=== PATIENT | male | born 1985 | race African-American/Black ===

== ENCOUNTER 2017-10-14 20:53 | Emergency (ER) | payer MEDICAID ==
--- NOTE | 2017-10-14 22:41 | ER Document Report ---
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 Denies shortness of breath, states the area hurts worse to his hips. Denies nausea or vomiting, abdominal pain. Denies recent sick contacts. 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 On oxycodone at home. - Related Data Allergies/Adverse Reactions: No Known Allergies Allergy (Unverified 10/14/17 20:54) Past Medical History - Social History Chew tobacco use (# tins/day): No Frequency of alcohol use: None Drug Abuse: None Renal/ Medical History: Denies: Hx Peritoneal Dialysis Physical Exam - Vital signs Vitals: Temp Pulse Resp BP Pulse Ox 98.9 F 85 16 118/64 100 10/14/17 21:11 10/14/17 21:11 10/14/17 21:11 10/14/17 21:11 10/14/17 21:11 - General General appearance: Appears well In distress: None - Respiratory Respiratory status: No respiratory distress Breath sounds: Normal. No: Decreased air movement, Wheezing - Cardiovascular Rhythm: Regular. No: Tachycardia Heart sounds: Normal auscultation, S1 appreciated, S2 appreciated Course - Vital Signs Vital signs: Temp Pulse Resp BP Pulse Ox 98.9 F 85 16 118/64 100 10/14/17 21:11 10/14/17 21:11 10/14/17 21:11 10/14/17 21:11 10/14/17 21:11
[2017-10-14] MEDS ORDERED: FENTANYL CITRATE INJ/PF 100 MCG/2 ML AMPUL IV ONE (23:18)
--- NOTE | 2017-10-14 23:44 | ER Document Report ---
ED General - General Chief Complaint: Sickle Cell Crisis Stated Complaint: BODY PAIN Time Seen by Provider: 10/14/17 22:39 Information source: Patient, Relative - [facility] Patient complains to provider of: Sickle cell pain Onset: This morning Onset/Duration: Gradual, Constant Quality of pain: Dull Severity: Moderate Context: All over including hips and back. Patient states is like his normal sickle cell pain. Associated symptoms: None Exacerbated by: Denies Relieved by: Denies Similar symptoms previously: Yes Recently seen / treated by doctor: No - Patient missed his appointment a few weeks ago with his primary medical Notes: She states he has been out of his oxycodone for approximately 2 weeks. He states he missed an appointment with his primary and therefore did not get a prescription for pain medication. I did ask the patient if this was a sickle- cell exacerbation or just the fact that he has not had his pain medication in a few weeks. He states "combination of both". - Related Data Allergies/Adverse Reactions: No Known Allergies Allergy (Unverified 10/14/17 20:54) Past Medical History - General Information source: Patient - Social History Smoking Status: Never Smoker Chew tobacco use (# tins/day): No Frequency of alcohol use: None Drug Abuse: None Lives with: Family Family History: Reviewed & Not Pertinent Patient has suicidal ideation: No Patient has homicidal ideation: No - Past Medical History Cardiac Medical History: Reports: None Pulmonary Medical History: Reports: None EENT Medical History: Reports: None Neurological Medical History: Reports: None Endocrine Medical History: Reports: None Renal/ Medical History: Reports: None. Denies: Hx Peritoneal Dialysis Malignancy Medical History: Reports None GI Medical History: Reports: None Musculoskeltal Medical History: Reports None Skin Medical History: Reports None Psychiatric Medical History: Reports: None Past Surgical History: Reports: Other - Left anterior chest wall port Review of Systems - Review of Systems Constitutional: No symptoms reported EENT: No symptoms reported Cardiovascular: No symptoms reported Respiratory: No symptoms reported Gastrointestinal: No symptoms reported Genitourinary: No symptoms reported Male Genitourinary: No symptoms reported Musculoskeletal: Muscle pain Skin: No symptoms reported Hematologic/Lymphatic: No symptoms reported Neurological/Psychological: No symptoms reported Physical Exam - Vital signs Vitals: Temp Pulse Resp BP Pulse Ox 98.9 F 85 16 118/64 100 10/14/17 21:11 10/14/17 21:11 10/14/17 21:11 10/14/17 21:11 10/14/17 21:11 - Notes Notes: PHYSICAL EXAMINATION: GENERAL: Well-appearing, well-nourished and in no acute distress. HEAD: Atraumatic, normocephalic. EYES: Pupils equal round and reactive to light, extraocular movements intact, sclera anicteric, conjunctiva are normal. ENT: Nares patent, oropharynx clear without exudates. Moist mucous membranes. NECK: Normal range of motion, supple without lymphadenopathy LUNGS: Breath sounds clear to auscultation bilaterally and equal. No wheezes rales or rhonchi. HEART: Regular rate and rhythm without murmurs. Port to left anterior chest wall without signs or symptoms of infection. ABDOMEN: Soft, nontender, nondistended abdomen. No guarding, no rebound. No masses appreciated. Musculoskeletal: Normal range of motion, no pitting or edema. No cyanosis. NEUROLOGICAL: Cranial nerves grossly intact. Normal speech, normal gait. Normal sensory, motor exams PSYCH: Normal mood, normal affect. SKIN: Warm, Dry, normal turgor, no rashes or lesions noted. Course - Re-evaluation Re-evalutation: 10/14/17 23:40 The patient up in [place] controlled substance prescription reporting he did receive oxycodone and Ultram throughout the month of September including 4010 mg oxycodone's on September 30, 2017. 10/15/17 00:48 Patient states that they do not transfuse him until his blood level is below 7.9. He wants to go home. He is requesting a to go pack of pain medication. I did tell him I will give him a to go pack but he needs to follow-up this primary medical doctor to get more pain medication. 10/15/17 01:04 Labs- All tests 24 hr 10/14/17 10/14/17 10/14/17 22:50 23:53 23:53 WBC 10.5 RBC 2.69 L Hgb 7.9 L Hct 23.4 L MCV 87 MCH 29.3 MCHC 33.6 RDW 19.5 H Plt Count 441 Total Counted 100 Seg Neutrophils % Not Reportable Seg Neuts % (Manual) 68 Lymphocytes % Not Reportable Lymphocytes % (Manual) 20 Monocytes % Not Reportable Monocytes % (Manual) 12 Eosinophils % Not Reportable Eosinophils % (Manual) 0 Basophils % Not Reportable Basophils % (Manual) 0 Absolute Neutrophils Not Reportable Abs Neuts (Manual) 7.1 Absolute Lymphocytes Not Reportable Abs Lymphs (Manual) 2.1 Absolute Monocytes Not Reportable Abs Monocytes (Manual) 1.3 Absolute Eosinophils Not Reportable Absolute Eos (Manual) 0.0 Absolute Basophils Not Reportable Abs Basophils (Manual) 0.0 Nucleated RBCs 3 Large Platelets PRESENT Platelet Comment ADEQUATE Polychromasia SLIGHT Poikilocytosis 2+ Anisocytosis 2+ Sickle Cells 1+ Target Cells 3+ Tear Drop Cells SLIGHT Ovalocytes SLIGHT Stomatocytes SLIGHT Stahl-Doon Bodies PRESENT Schistocytes SLIGHT Retic Count (auto) 6.07 H Absolute Retic 0.163 H Sodium 138.9 Potassium 4.2 Chloride 100 Carbon Dioxide 26 Anion Gap 13 BUN 9 Creatinine 0.71 Est GFR ( Amer) > 60 Est GFR (Non-Af Amer) > 60 Glucose 109 Calcium 9.9 Total Bilirubin 1.9 H Direct Bilirubin 0.5 H Neonat Total Bilirubin Not Reportable Neonat Direct Bilirubin Not Reportable Neonat Indirect Bili Not Reportable AST 50 ALT 55 Alkaline Phosphatase 214 H Total Protein 8.4 H Albumin 4.9 Urine Color YELLOW Urine Appearance CLEAR Urine pH 7.0 Ur Specific [place] 1.011 Urine Protein 100 H Urine Glucose (UA) NEGATIVE Urine Ketones NEGATIVE Urine Blood NEGATIVE Urine Nitrite NEGATIVE Urine Bilirubin NEGATIVE Urine Urobilinogen 4.0 H Ur Leukocyte Esterase NEGATIVE Urine WBC (Auto) 3 Urine RBC (Auto) 1 Squamous Epi Cells Auto <1 Urine Mucus (Auto) RARE Urine Ascorbic Acid NEGATIVE - Vital Signs Vital signs: Temp Pulse Resp BP Pulse Ox 98.9 F 85 16 118/64 100 10/14/17 21:11 10/14/17 21:11 10/14/17 21:11 10/14/17 21:11 10/14/17 21:11 - Laboratory Result Diagrams: 10/14/17 23:53 10/14/17 23:53 Laboratory results interpreted by me: 10/14/17 10/14/17 10/14/17 22:50 23:53 23:53 RBC 2.69 L Hgb 7.9 L Hct 23.4 L RDW 19.5 H Retic Count (auto) 6.07 H Absolute Retic 0.163 H Total Bilirubin 1.9 H Direct Bilirubin 0.5 H Alkaline Phosphatase 214 H Total Protein 8.4 H Urine Protein 100 H Urine Urobilinogen 4.0 H Discharge - Discharge Clinical Impression: Sickle cell anemia with pain, Has run out of medications Condition: Stable Disposition: HOME, SELF-CARE Instructions: Sickle Cell Crisis ([facility]) Additional Instructions: Follow up with your physician tomorrow for further care or return to the ED IMMEDIATELY if symptoms worsen or new concerns occur. If you cannot afford to follow up with your primary care physician a list of low cost clinics have been provided at the end of your discharge papers as well. Prescriptions: Oxycodone HCl [Oxycodone HCl 10 MG Tablet] 5 - 10 mg PO Q6H PRN #10 tablet PRN Reason: PAIN Oxycodone HCl/Acetaminophen [Percocet 5-325 mg Tablet] 1 - 2 tab PO Q4H PRN 3 Days #10 tablet PRN Reason:
[2017-10-15 00:12] LABS: ALANINE AMINOTRANSFERASE 55 U/L (21-72); ALBUMIN 4.9 g/dL (3.5-5.0); ALKALINE PHOSPHATASE 214 U/L (38-126); ANION GAP 13 (5-19); ASPARTATE AMINO TRANSFERASE 50 U/L (17-59); BILIRUBIN,DIRECT 0.5 mg/dL (0.0-0.4); BILIRUBIN,TOTAL 1.9 mg/dL (0.2-1.3); BLOOD UREA NITROGEN 9 mg/dL (7-20); CALCIUM 9.9 mg/dL (8.4-10.2); CARBON DIOXIDE 26 mmol/L (22-30); CHLORIDE 100 mmol/L (98-107); GLUCOSE 109 mg/dL (75-110); POTASSIUM 4.2 mmol/L (3.6-5.0); SODIUM 138.9 mmol/L (137-145); TOTAL PROTEIN 8.4 g/dL (6.3-8.2)
[2017-10-15 00:21] LABS: ABSOLUTE RETICS # 0.163 10^6/uL (0.028-0.122); HEMATOCRIT 23.4 % (37.9-51.0); MEAN CORPUSCULAR HEMOGLOBIN 29.3 pg (27.0-33.4); MEAN CORPUSCULAR HGB CONC 33.6 g/dL (32.0-36.0); MEAN CORPUSCULAR VOLUME 87 fl (80-97); PLATELET COUNT 441 10^3/uL (150-450); RED BLOOD COUNT 2.69 10^6/uL (4.35-5.55); RED CELL DISTRIBUTION WIDTH 19.5 % (11.5-14.0); RETICULOCYTE COUNT (AUTO) 6.07 % (0.66-2.85); WHITE BLOOD COUNT 10.5 10^3/uL (4.0-10.5)
[2017-10-15 00:27] LABS: APPEARANCE,URINE CLEAR; BILIRUBIN,URINE NEGATIVE (NEGATIVE); COLOR,URINE YELLOW; GLUCOSE, URINE NEGATIVE (NEGATIVE); KETONES,URINE NEGATIVE (NEGATIVE); LEUKOCYTE ESTERASE,URINE NEGATIVE (NEGATIVE); NITRITE,URINE NEGATIVE (NEGATIVE); PROTEIN,URINE 100 mg/dL (NEGATIVE); URINE SPECIFIC GRAVITY 1.011
[2017-10-15 00:44] LABS: HEMOGLOBIN 7.9 g/dL (13.5-17.0)
[2017-10-15] MEDS ORDERED: HYDROCODONE/ACETAMINOPHEN 5-325 MG (6 TAB/ER DISP) PO PRN (00:48)
[2017-10-15 00:50] LABS: ABSOLUTE LYMPHOCYTES# (MANUAL) 2.1 10^3/uL (0.5-4.7); ABSOLUTE MONOCYTES # (MANUAL) 1.3 10^3/uL (0.1-1.4); ABSOLUTE NEUTROPHILS# (MANUAL) 7.1 10^3/uL (1.7-8.2); BASOPHILS % (MANUAL) 0 % (0-2); EOSINOPHILS % (MANUAL) 0 % (0-6); LYMPHOCYTES % (MANUAL) 20 % (13-45); MONOCYTES % (MANUAL) 12 % (3-13); NUCLEATED RED BLOOD CELLS 3 /100 WBC (0); SEGMENTED NEUTROPHILS % (MAN) 68 % (42-78); TOTAL CELLS COUNTED 100
[2017-10-15 00:55] LABS: POLYCHROMASIA SLIGHT
[2017-10-15 00:56] LABS: ANISOCYTOSIS 2+; HOWELL-JOLLY BODIES PRESENT; OVALOCYTES SLIGHT; PLATELET COMMENT ADEQUATE; PLATELET LARGE PRESENT; POIKILOCYTOSIS 2+; SCHISTOCYTES SLIGHT; SICKLE RED CELLS 1+; STOMATOCYTES SLIGHT; TARGET CELLS 3+; TEAR DROP CELLS SLIGHT
[2017-10-15 01:05] VITALS: BP 122/64
== END 2017-10-15 01:12 | disposition home or self-care (01) ==
LOC: ER 20:53
DX: D57.00 Hb-SS disease with crisis, unspecified (principal); M79.1 Myalgia
CPT/HCPCS: 36591; 99284; 96374; 36415; 85025; 85045; 80053; 81001; J3010

== ENCOUNTER 2017-10-18 19:08 | Inpatient (IN) | payer MEDICAID ==
--- NOTE | 2017-10-18 20:21 | ER Document Report ---
ED Medical Screen (RME) - General Chief Complaint: Pain All Over Stated Complaint: PAIN Time Seen by Provider: 10/18/17 20:12 Mode of Arrival: Ambulatory Information source: Patient Notes: 32-year-old male history of sickle cell disease seen here a few days prior presents with complaint of continued pain I have greeted and performed a rapid initial assessment of this patient. A comprehensive ED assessment and evaluation of the patient, analysis of test results and completion of the medical decision making process will be conducted by additional ED providers. PHYSICAL EXAMINATION: GENERAL: Well-appearing, well-nourished and in no acute distress. HEAD: Atraumatic, normocephalic. EYES: Pupils equal round extraocular movements intact, conjunctiva are normal. ENT: Nares patent NECK: Normal range of motion LUNGS: No respiratory distress Musculoskeletal: Normal range of motion NEUROLOGICAL: Normal speech, normal gait. PSYCH: Normal mood, normal affect. SKIN: Warm, Dry, normal turgor, no rashes or lesions noted. - Related Data Allergies/Adverse Reactions: No Known Allergies Allergy (Verified 10/18/17 19:10) Past Medical History - Social History Chew tobacco use (# tins/day): No Frequency of alcohol use: None Drug Abuse: None Renal/ Medical History: Denies: Hx Peritoneal Dialysis Past Surgical History: Reports: Other - Left anterior chest wall port Physical Exam - Vital signs Vitals: Temp Pulse Resp BP Pulse Ox 100.2 F 98 18 106/69 99 10/18/17 19:30 10/18/17 19:30 10/18/17 19:30 10/18/17 19:30 10/18/17 19:30 Course - Vital Signs Vital signs: Temp Pulse Resp BP Pulse Ox 100.2 F 98 18 106/69 99 10/18/17 19:30 10/18/17 19:30 10/18/17 19:30 10/18/17 19:30 10/18/17 19:30
[2017-10-18] MEDS ORDERED: HYDROMORPHONE HCL INJ/PF 2 MG/ML AMPULE IV ONE (20:54)
[2017-10-18] MEDS ORDERED: ONDANSETRON HCL INJ/PF 4 MG/2 ML SDV IV ONE (20:54)
[2017-10-18] MEDS ORDERED: NORMAL SALINE 1000 ML 1,000 ML IV ONE ×2 (20:54)
--- NOTE | 2017-10-18 20:56 | ER Document Report ---
ED General - General Chief Complaint: Pain All Over Stated Complaint: PAIN Time Seen by Provider: 10/18/17 20:12 Mode of Arrival: Ambulatory Notes: Patient is a 32-year-old male that comes emergency department for chief complaint of sickle cell crisis, he states he hurts all over but he also has a nonproductive cough and a sore throat with fevers running since yesterday. He denies congestion, nausea or vomiting, diarrhea, abdominal pain, difficulty breathing. 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 - Related Data Allergies/Adverse Reactions: No Known Allergies Allergy (Verified 10/18/17 19:10) Past Medical History - General Information source: Patient - Social History Smoking Status: Never Smoker Chew tobacco use (# tins/day): No Frequency of alcohol use: None Drug Abuse: None Lives with: Family Family History: Reviewed & Not Pertinent Patient has suicidal ideation: No Patient has homicidal ideation: No Renal/ Medical History: Denies: Hx Peritoneal Dialysis Past Surgical History: Reports: Other - Left anterior chest wall port - Immunizations Immunizations up to date: Yes Hx Diphtheria, Pertussis, Tetanus Vaccination: Yes Review of Systems - Review of Systems Constitutional: See HPI EENT: See HPI Cardiovascular: No symptoms reported Respiratory: See HPI Gastrointestinal: No symptoms reported Genitourinary: No symptoms reported Male Genitourinary: No symptoms reported Musculoskeletal: See HPI Skin: No symptoms reported Hematologic/Lymphatic: See HPI Neurological/Psychological: No symptoms reported Physical Exam - Vital signs Vitals: Temp Pulse Resp BP Pulse Ox 100.2 F 98 18 106/69 99 10/18/17 19:30 10/18/17 19:30 10/18/17 19:30 10/18/17 19:30 10/18/17 19:30 - General General appearance: Alert In distress: None - HEENT Head: Normocephalic, Atraumatic Eyes: Normal Conjunctiva: Normal Extraocular movements intact: Yes Eyelashes: Normal Pupils: PERRL Sinus: Normal Nasal: Normal Mouth/Lips: Normal Mucous membranes: Normal Pharynx: Erythema, Exudate, Tonsillar hypertrophy. No: Peritonsillar abscess, Retropharyngeal abscess, Uvular edema, Potential airway comprom. Neck: No: Meningismus, Neck mass - Respiratory Respiratory status: No respiratory distress Breath sounds: Normal. No: Decreased air movement, Wheezing - Cardiovascular Rhythm: Regular. No: Tachycardia Heart sounds: Normal auscultation, S1 appreciated, S2 appreciated - Abdominal Inspection: Normal Tenderness: Nontender. No: Tender, Guarding - Back Back: Normal, Nontender. No: Tender - Extremities General upper extremity: Normal inspection, Nontender, Normal ROM, Normal strength General lower extremity: Normal inspection, Nontender, Normal ROM, Normal strength. No: Edema - Neurological Neuro grossly intact: Yes Cognition: Normal Orientation: AAOx4 [place] Coma Scale Eye Opening: Spontaneous [place] Coma Scale Verbal: Oriented [place] Coma Scale Motor: Obeys Commands Santiago Coma Scale Total: 15 Speech: Normal Motor strength normal: LUE, RUE, LLE, RLE Sensory: Normal - Skin Skin Temperature: Warm Skin Moisture: Dry Skin Color: Normal Course - Re-evaluation Re-evalutation: Patient reporting is much more comfortable but is still in pain after first round of medications and IV fluids. No fever, temperature 100.2, no tachycardia , no hypotension. Clear lungs, chest x-ray does not show pneumonia, no evidence of acute chest syndrome on exam. Patient does have exudative pharyngitis, strep is negative, however patient has leukocytosis with elevation of neutrophils, culture pending. Given Rocephin for coverage. In addition to leukocytosis patient has elevated reticulocytes, greater compared to prior. Chemistries generally unremarkable. Discussed results with patient, discussed symptoms on reevaluation, after discussion will discuss with hospitalist for admission for sickle cell pain crisis suspected bacterial pharyngitis. Discussed with Dr. Velez, patient will be admitted to the medical floor. - Vital Signs Vital signs: Temp Pulse Resp BP Pulse Ox 99.6 F 74 19 104/60 99 10/18/17 22:43 10/19/17 02:17 10/19/17 02:17 10/19/17 02:02 10/19/17 02:17 - Laboratory Result Diagrams: 10/18/17 23:05 10/18/17 22:05 Laboratory results interpreted by me: 10/18/17 10/18/17 22:05 23:05 WBC 28.9 H RBC 2.86 L Hgb 8.6 L Hct 26.4 L RDW 23.5 H Abs Neuts (Manual) 22.5 H Abs Monocytes (Manual) 2.6 H Retic Count (auto) 10.90 H Absolute Retic 0.311 H Sodium 136.3 L BUN 6 L Glucose 113 H ALT 83 H Alkaline Phosphatase 144 H Discharge - Discharge Clinical Impression: Exudative pharyngitis, Sickle cell anemia with crisis Condition: Stable Disposition: ADMITTED INPATIENT Admitting Provider: Hospitalist Unit Admitted: Medical Floor
--- NOTE | 2017-10-18 21:56 | RADIOLOGY REPORT (SQ) ---
EXAM DESCRIPTION: CHEST PA/LAT COMPLETED DATE/TIME: 10/18/2017 9:16 pm REASON FOR STUDY: sickle cell body aches COMPARISON: None. EXAM PARAMETERS: NUMBER OF VIEWS: two views TECHNIQUE: Digital Frontal and Lateral radiographic views of the chest acquired. RADIATION DOSE: NA LIMITATIONS: none FINDINGS: LUNGS AND PLEURA: There are low lung volumes. No dense focal consolidation worrisome for an yet. No pleural effusion. No pneumothorax. MEDIASTINUM AND HILAR STRUCTURES: No masses or contour abnormalities. HEART AND VASCULAR STRUCTURES: Mild cardiomegaly. BONES: Diffuse bony sclerosis wake characteristic vertebral body biconcave endplate changes from sick le cell. HARDWARE: Faintly radiopaque permanent left subclavian central line with the tip in the superior vena cava. OTHER: No other significant finding. IMPRESSION: No acute infiltrates. Mild cardiomegaly. Characteristic bony findings of sickle cell TECHNICAL DOCUMENTATION: JOB ID: [id number] [employer]- All Rights Reserved Reading location - IP/workstation name: [email or web address]
[2017-10-18 22:42] LABS: ALANINE AMINOTRANSFERASE 83 U/L (21-72); ALBUMIN 4.4 g/dL (3.5-5.0); ALKALINE PHOSPHATASE 144 U/L (38-126); ANION GAP 14 (5-19); ASPARTATE AMINO TRANSFERASE 57 U/L (17-59); BILIRUBIN,DIRECT 0.4 mg/dL (0.0-0.4); BILIRUBIN,TOTAL 0.9 mg/dL (0.2-1.3); BLOOD UREA NITROGEN 6 mg/dL (7-20); CALCIUM 9.6 mg/dL (8.4-10.2); CARBON DIOXIDE 22 mmol/L (22-30); CHLORIDE 100 mmol/L (98-107); GLUCOSE 113 mg/dL (75-110); POTASSIUM 3.7 mmol/L (3.6-5.0); SODIUM 136.3 mmol/L (137-145); TOTAL PROTEIN 7.8 g/dL (6.3-8.2)
[2017-10-18 23:29] LABS: ABSOLUTE RETICS # 0.311 10^6/uL (0.028-0.122); HEMATOCRIT 26.4 % (37.9-51.0); HEMOGLOBIN 8.6 g/dL (13.5-17.0); MEAN CORPUSCULAR HEMOGLOBIN 30.2 pg (27.0-33.4); MEAN CORPUSCULAR HGB CONC 32.7 g/dL (32.0-36.0); PLATELET COUNT 347 10^3/uL (150-450); RED BLOOD COUNT 2.86 10^6/uL (4.35-5.55); RED CELL DISTRIBUTION WIDTH 23.5 % (11.5-14.0); WHITE BLOOD COUNT 28.9 10^3/uL (4.0-10.5)
[2017-10-18 23:32] LABS: MEAN CORPUSCULAR VOLUME 92 fl (80-97)
[2017-10-18 23:46] LABS: ABSOLUTE LYMPHOCYTES# (MANUAL) 3.8 10^3/uL (0.5-4.7); ABSOLUTE MONOCYTES # (MANUAL) 2.6 10^3/uL (0.1-1.4); ABSOLUTE NEUTROPHILS# (MANUAL) 22.5 10^3/uL (1.7-8.2); BASOPHILS % (MANUAL) 0 % (0-2); EOSINOPHILS % (MANUAL) 0 % (0-6); LYMPHOCYTES % (MANUAL) 13 % (13-45); MONOCYTES % (MANUAL) 9 % (3-13); PLATELET COMMENT ADEQUATE; SEGMENTED NEUTROPHILS % (MAN) 78 % (42-78); TOTAL CELLS COUNTED 100
[2017-10-19 00:01] LABS: POIKILOCYTOSIS 2+; POLYCHROMASIA 1+; TARGET CELLS 2+
[2017-10-19 00:02] LABS: ANISOCYTOSIS 2+; HYPOCHROMASIA 2+
[2017-10-19 00:07] LABS: HYPERSEGMENTED NEUTROPHILS PRESENT
[2017-10-19] MEDS ORDERED: HYDROMORPHONE HCL INJ/PF 2 MG/ML AMPULE IV ONE (00:09)
[2017-10-19] MEDS ORDERED: CEFTRIAXONE INJ 1000 MG VIAL IV ONE (00:11)
[2017-10-19] MEDS ORDERED: HYDRALAZINE HCL INJ/PF 20 MG/1 ML SDV IV PRN (00:38)
[2017-10-19] MEDS ORDERED: CHLORPHENIRAMINE MALEATE 4 MG TABLET PO ONE (00:38)
[2017-10-19] MEDS ORDERED: KETOROLAC TROMETHAMINE INJ/PF 30 MG/1 ML SDV IV PRN (00:38)
[2017-10-19] MEDS ORDERED: ACETAMINOPHEN 325 MG TABLET PO PRN (00:38)
[2017-10-19] MEDS ORDERED: IPRATROPIUM/ALBUTEROL 0.5-2.5 MG/3 ML AMPUL NEB PRN (00:41)
[2017-10-19] MEDS: IPRATROPIUM/ALBUTEROL 0.5-2.5 MG/3 ML AMPUL NEB SCH ×4 (02:17→19:39)
[2017-10-19] MEDS: NORMAL SALINE 1000 ML 1,000 ML IV SCH ×2 (03:52→07:12)
[2017-10-19] MEDS ORDERED: CHLORPHENIRAMINE MALEATE 4 MG TABLET ONE (04:14)
[2017-10-19] MEDS: GUAIFENESIN SYRP 200 MG/10 ML UDC PO PRN ×2 (04:24→21:29)
[2017-10-19] MEDS ORDERED: OXYCODONE HCL IR 5 MG TABLET ONE (05:55)
--- NOTE | 2017-10-19 06:18 | PDOC H&P ---
History of Present Illness Admission Date/PCP: 10/19/17 00:43 Patient complains of: Sore throat and diffuse body pain History of Present Illness: MASTER MATOS is a 32 year old male with a past medical history of sickle cell anemia and chronic pain. Patient has had 1 week of pharyngitis, denying rhinorrhea, cough, GERD, nausea vomiting he has had subjective fever prompting evaluation emergency room where he is found to have a severe leukocytosis of 29, 000, hemoglobin of 8.6 and reticulocyte count of 11. He started on empiric antibiotics of Rocephin, IV fluids and referred to the hospitalist for admission. Patient denies recent antibiotic use and is otherwise been feeling well. He denies chest pain shortness of breath nausea vomiting. Past Medical History Cardiac Medical History: Reports: None Pulmonary Medical History: Reports: None EENT Medical History: Reports: None Neurological Medical History: Reports: None Endocrine Medical History: Reports: None Renal/ Medical History: Reports: None Malignancy Medical History: Reports: None GI Medical History: Reports: None Musculoskeltal Medical History: Reports: None Skin Medical History: Reports: None Psychiatric Medical History: Reports: None Traumatic Medical History: Reports: None Hematology: Reports: Anemia, Sickle Cell Disease Infectious Medical History: Reports: None Past Surgical History Past Surgical History: Reports: Other - Left anterior chest wall port Social History Information Source: Patient Lives with: Family Smoking Status: Never Smoker Frequency of Alcohol Use: None Hx Recreational Drug Use: No Drugs: None Hx Prescription Drug Abuse: No - Advance Directive Resuscitation Status: Full Code Family History Family History: Hypertension Parental Family History Reviewed: Yes Children Family History Reviewed: Yes Sibling(s) Family History Reviewed.: Yes Medication/Allergy Home Medications: Oxycodone HCl [Oxycodone HCl 10 MG Tablet] 5 - 10 mg PO Q6H PRN #10 tablet 10/15 Folic Acid 1 mg PO 10/19/17 Oxycodone HCl/Acetaminophen [Percocet 5-325 mg Tablet] 300 mg PO Q4H PRN Allergies/Adverse Reactions: No Known Allergies Allergy (Verified 10/18/17 19:10) Review of Systems Constitutional: ABSENT: chills, fever(s), headache(s), weight gain, weight loss Eyes: ABSENT: visual disturbances Ears: ABSENT: hearing changes Cardiovascular: ABSENT: chest pain, dyspnea on exertion, edema, orthropnea, palpitations Respiratory: ABSENT: cough, hemoptysis Gastrointestinal: ABSENT: abdominal pain, constipation, diarrhea, hematemesis, hematochezia, nausea, vomiting Genitourinary: ABSENT: dysuria, hematuria Musculoskeletal: ABSENT: joint swelling Integumentary: ABSENT: rash, wounds Neurological: ABSENT: abnormal gait, abnormal speech, confusion, dizziness, focal weakness, syncope Psychiatric: ABSENT: anxiety, depression, homidical ideation, suicidal ideation Endocrine: ABSENT: cold intolerance, heat intolerance, polydipsia, polyuria Hematologic/Lymphatic: ABSENT: easy bleeding, easy bruising Physical Exam Vital Signs: Temp Pulse Resp BP Pulse Ox 98.2 F 71 18 116/67 98 10/19/17 03:27 10/19/17 03:27 10/19/17 03:27 10/19/17 03:27 10/19/17 03:27 General appearance: PRESENT: cooperative, mild distress, thin. ABSENT: disheveled, hard of hearing, obese, severe distress Head exam: PRESENT: atraumatic, normocephalic Eye exam: PRESENT: conjunctiva pink, EOMI, PERRLA. ABSENT: scleral icterus Ear exam: PRESENT: normal external ear exam Mouth exam: PRESENT: moist, tongue midline, other - Left-sided erythemic enlarged tonsils with exudate Neck exam: PRESENT: lymphadenopathy - Left-sided 1.5 cm submandibular tender lymphadenopathy Respiratory exam: PRESENT: clear to auscultation helen. ABSENT: rales, rhonchi, wheezes Cardiovascular exam: PRESENT: RRR. ABSENT: diastolic murmur, rubs, systolic murmur Pulses: PRESENT: normal dorsalis pedis pul Vascular exam: PRESENT: normal capillary refill GI/Abdominal exam: PRESENT: normal bowel sounds, soft. ABSENT: distended, guarding, mass, organolmegaly, rebound, tenderness Rectal exam: PRESENT: deferred Extremities exam: PRESENT: full ROM. ABSENT: calf tenderness, clubbing, pedal edema Neurological exam: PRESENT: alert, awake, oriented to person, oriented to place , oriented to time, oriented to situation, CN II-XII grossly intact. ABSENT: motor sensory deficit Psychiatric exam: PRESENT: appropriate affect, normal mood. ABSENT: homicidal ideation, suicidal ideation Skin exam: PRESENT: dry, intact, warm. ABSENT: cyanosis, rash Results Impressions: Chest X-Ray 10/18/17 20:12 IMPRESSION: No acute infiltrates. Mild cardiomegaly. Characteristic bony findings of sickle cell Assessment & Plan - Diagnosis (1) Exudative pharyngitis Is this a current diagnosis for this admission?: Yes Plan: Empiric antibiotics, symptomatic management, IV fluid challenge, reevaluate CBC and blood culture. (2) Sickle cell anemia with pain Is this a current diagnosis for this admission?: Yes Plan: Symptomatic management opiates and NSAIDs as needed, follow-up CBC (3) Has run out of medications Is this a current diagnosis for this admission?: Yes Plan: Concern for narcotic dependence and recent relocation to the area consider database evaluation. - Time Time Spent: 30 to 50 Minutes - Inpatient Certification Medical Necessity: Need Close Monitoring Due to Risk of Patient Decompensation
[2017-10-19 07:00] LABS: HEMATOCRIT 21.2 % (37.9-51.0); MEAN CORPUSCULAR HEMOGLOBIN 30.2 pg (27.0-33.4); MEAN CORPUSCULAR HGB CONC 32.5 g/dL (32.0-36.0); MEAN CORPUSCULAR VOLUME 93 fl (80-97); PLATELET COUNT 307 10^3/uL (150-450); RED BLOOD COUNT 2.28 10^6/uL (4.35-5.55); RED CELL DISTRIBUTION WIDTH 22.8 % (11.5-14.0); WHITE BLOOD COUNT 28.1 10^3/uL (4.0-10.5)
[2017-10-19] MEDS: HEPARIN SOD (PORCINE) 5,000 UNIT/ML 1 ML SYRINGE SUBCUT SCH ×3 (07:18→22:16)
[2017-10-19 07:20] LABS: ANION GAP 10 (5-19); BLOOD UREA NITROGEN 5 mg/dL (7-20); CALCIUM 8.7 mg/dL (8.4-10.2); CARBON DIOXIDE 23 mmol/L (22-30); CHLORIDE 106 mmol/L (98-107); GLUCOSE 96 mg/dL (75-110); POTASSIUM 3.5 mmol/L (3.6-5.0); SODIUM 139.4 mmol/L (137-145)
[2017-10-19 07:33] LABS: HEMOGLOBIN 6.9 g/dL (13.5-17.0)
[2017-10-19 07:35] LABS: ABSOLUTE LYMPHOCYTES# (MANUAL) 4.2 10^3/uL (0.5-4.7); ABSOLUTE MONOCYTES # (MANUAL) 2.2 10^3/uL (0.1-1.4); ABSOLUTE NEUTROPHILS# (MANUAL) 21.6 10^3/uL (1.7-8.2); BASOPHILS % (MANUAL) 0 % (0-2); EOSINOPHILS % (MANUAL) 0 % (0-6); LYMPHOCYTES % (MANUAL) 15 % (13-45); MONOCYTES % (MANUAL) 8 % (3-13); SEGMENTED NEUTROPHILS % (MAN) 77 % (42-78); TOTAL CELLS COUNTED 100
[2017-10-19 07:40] LABS: ANISOCYTOSIS 3+; HOWELL-JOLLY BODIES PRESENT; OVALOCYTES SLIGHT; PLATELET COMMENT ADEQUATE; POIKILOCYTOSIS 2+; POLYCHROMASIA SLIGHT; SCHISTOCYTES SLIGHT; TARGET CELLS 1+
[2017-10-19] MEDS: FLUTICASONE NASAL SPRAY 50 MCG/SPRY 120 SPRAY/16 GM NASL SCH ×2 (10:13→21:32)
[2017-10-19] MEDS: LACTULOSE SYRUP 20 GM/30 ML UDCUP PO SCH (10:13)
[2017-10-19] MEDS ORDERED: FENTANYL CITRATE INJ/PF 100 MCG/2 ML AMPUL IV PRN (10:17)
--- NOTE | 2017-10-19 11:06 | PDOC PROGRESS REPORT ---
Subjective Progress Note for:: 10/19/17 Subjective:: The patient is an unfortunate 32-year-old -Kos[place] male who moved to this area from [facility] 1 week ago. He has a history of sickle cell disease and follows at [facility]. He has known avascular necrosis in both of his hips and is currently awaiting hip replacement. He presented to the emergency room with a one-week history of a severe sore throat. He was found to have markedly leukocytosis and referred for admission.Throat culture is negative to date. He has been started on empiric IV antibiotics. He also has been found to have a sickle cell crisis. He has an elevated reticulocyte count and he states that he is having pain primarily in his back and hips. Unfortunately we do not have access to IV morphine, Dilaudid or Demerol. IV fentanyl is the only narcotic that we have been he states this does not work for him. Reason For Visit: SSC, URI, CHRONIC PAIN Physical Exam Vital Signs: Temp Pulse Resp BP Pulse Ox 97.4 F 64 16 106/63 96 10/19/17 08:03 10/19/17 09:11 10/19/17 09:11 10/19/17 08:03 10/19/17 09:11 Intake & Output 10/18/17 10/19/17 10/20/17 06:59 06:59 06:59 Intake Total 120 Output Total 300 Balance -180 Weight 62 kg General appearance: PRESENT: other Head exam: PRESENT: atraumatic - He looks as if he does not feel well, normocephalic Mouth exam: PRESENT: moist, tongue midline Neck exam: PRESENT: lymphadenopathy Respiratory exam: PRESENT: clear to auscultation helen. ABSENT: rales, rhonchi, wheezes Cardiovascular exam: PRESENT: tachycardia. ABSENT: diastolic murmur, rubs, systolic murmur GI/Abdominal exam: PRESENT: normal bowel sounds, soft. ABSENT: distended, guarding, mass, organolmegaly, rebound, tenderness Rectal exam: PRESENT: deferred Extremities exam: PRESENT: full ROM. ABSENT: calf tenderness, clubbing, pedal edema Musculoskeletal exam: PRESENT: tenderness - Over both hips and lumbar spine Neurological exam: PRESENT: alert, awake, oriented to person, oriented to place , oriented to time, oriented to situation, CN II-XII grossly intact. ABSENT: motor sensory deficit Psychiatric exam: PRESENT: appropriate affect, depressed, normal mood. ABSENT: homicidal ideation, suicidal ideation Skin exam: PRESENT: dry, intact, warm. ABSENT: cyanosis, rash Results Laboratory Results: 10/19/17 06:15 10/19/17 06:15 10/19/17 10/19/17 06:15 06:15 WBC 28.1 H RBC 2.28 L Hgb 6.9 L Hct 21.2 L MCV 93 MCH 30.2 MCHC 32.5 RDW 22.8 H Plt Count 307 Seg Neutrophils % Not Reportable Lymphocytes % Not Reportable Monocytes % Not Reportable Eosinophils % Not Reportable Basophils % Not Reportable Absolute Neutrophils Not Reportable Absolute Lymphocytes Not Reportable Absolute Monocytes Not Reportable Absolute Eosinophils Not Reportable Absolute Basophils Not Reportable Sodium 139.4 Potassium 3.5 L Chloride 106 Carbon Dioxide 23 Anion Gap 10 BUN 5 L Creatinine 0.54 Est GFR ( Amer) > 60 Est GFR (Non-Af Amer) > 60 Glucose 96 Calcium 8.7 Impressions: Chest X-Ray 10/18/17 20:12 IMPRESSION: No acute infiltrates. Mild cardiomegaly. Characteristic bony findings of sickle cell Assessment & Plan - Diagnosis (1) Exudative pharyngitis Is this a current diagnosis for this admission?: Yes Plan: His throat culture is negative to date. Continue IV Rocephin. This is the first full day of treatment. (2) Acute sickle cell crisis Is this a current diagnosis for this admission?: Yes Plan: I am going to start the patient on maintenance IV fluids at 150 cc an hour. He will have 4 mg of p.o. Dilaudid every 4 hours for pain. He will have IV fentanyl for breakthrough pain. We will make adjustments as we go along. (3) Sickle cell anemia Is this a current diagnosis for this admission?: Yes Plan: The patient has had a precipitous drop in his hemoglobin likely due to hemodilution. At this point I will hold off on transfusion. He also has known avascular necrosis and significant pain in both of his hips and lower back at this time. Supportive care for now as outlined above. He does follow at [facility] and states that he is going to move back home to [place] as his is having a hard time managing all of this being away from family. (4) Hyponatremia Is this a current diagnosis for this admission?: Yes Plan: He will have a chemistry panel drawn in the morning (5) Elevated liver function tests Is this a current diagnosis for this admission?: Yes Plan: Secondary to iron overload and sickle cell crisis. (6) Full code status Is this a current diagnosis for this admission?: Yes
[2017-10-19] MEDS: HYDROMORPHONE HCL 2 MG TABLET PO PRN ×4 (11:14→23:42)
[2017-10-19] MEDS ORDERED: OXYCODONE HCL IR 5 MG TABLET PO SCH (18:00)
[2017-10-19] MEDS: CEFTRIAXONE SODIUM 1,000 MG in NORMAL SALINE 100 ML IV SCH (21:30)
[2017-10-19] MEDS ORDERED: CEFTRIAXONE 1 GM/D5W RTU 1 GM/50 ML RTUPB IV SCH (22:00)
[2017-10-19] MEDS: NORMAL SALINE 1000 ML 1,000 ML IV PRN (23:43)
[2017-10-20] MEDS: IPRATROPIUM/ALBUTEROL 0.5-2.5 MG/3 ML AMPUL NEB SCH ×4 (01:41→19:26)
[2017-10-20] MEDS: HYDROMORPHONE HCL 2 MG TABLET PO PRN ×4 (05:20→20:48)
[2017-10-20 06:20] LABS: ABSOLUTE BASOPHILS # (AUTO) 0.1 10^3/uL (0.0-0.2); ABSOLUTE EOSINOPHILS # (AUTO) 0.2 10^3/uL (0.0-0.6); ABSOLUTE MONOCYTES (AUTO) 1.6 10^3/uL (0.1-1.4); ABSOLUTE NEUT (AUTO) 8.8 10^3/uL (1.7-8.2); ABSOLUTE RETICS # 0.117 10^6/uL (0.028-0.122); BASOPHILS % (AUTO) 0.6 % (0-2); EOSINOPHILS % (AUTO) 1.2 % (0-6); HEMATOCRIT 20.6 % (37.9-51.0); MEAN CORPUSCULAR HEMOGLOBIN 29.9 pg (27.0-33.4); MEAN CORPUSCULAR HGB CONC 32.6 g/dL (32.0-36.0); MEAN CORPUSCULAR VOLUME 92 fl (80-97); MONOCYTES % (AUTO) 11.5 % (3-13); PLATELET COUNT 322 10^3/uL (150-450); RED BLOOD COUNT 2.24 10^6/uL (4.35-5.55); RED CELL DISTRIBUTION WIDTH 21.8 % (11.5-14.0); RETICULOCYTE COUNT (AUTO) 5.24 % (0.66-2.85); SEGMENTED NEUTROPHILS % (AUTO) 64.7 % (42-78); TOTAL CELLS COUNTED % (AUTO) 100 %; WHITE BLOOD COUNT 13.5 10^3/uL (4.0-10.5)
[2017-10-20 06:24] LABS: HEMOGLOBIN 6.7 g/dL (13.5-17.0)
[2017-10-20 06:26] LABS: ANION GAP 9 (5-19); BLOOD UREA NITROGEN 3 mg/dL (7-20); CARBON DIOXIDE 17 mmol/L (22-30); CHLORIDE 118 mmol/L (98-107); GLUCOSE 70 mg/dL (75-110); POTASSIUM 3.1 mmol/L (3.6-5.0); SODIUM 144.3 mmol/L (137-145)
[2017-10-20 06:49] LABS: CALCIUM 6.6 mg/dL (8.4-10.2)
[2017-10-20] MEDS ORDERED: POTASSIUM CHLORIDE 10 MEQ TABLET.SA PO ONE (06:51)
[2017-10-20] MEDS: NORMAL SALINE 1000 ML 1,000 ML IV PRN (07:04)
[2017-10-20] MEDS: HEPARIN SOD (PORCINE) 5,000 UNIT/ML 1 ML SYRINGE SUBCUT SCH ×3 (07:12→21:24)
[2017-10-20] MEDS ORDERED: NORMAL SALINE 250 ML IV PRN ×2 (10:38)
--- NOTE | 2017-10-20 10:43 | PDOC PROGRESS REPORT ---
Subjective Progress Note for:: 10/20/17 Subjective:: The patient is an unfortunate 32-year-old -Cypriot male who moved to this area from [place], [place] 1 week ago. He has a history of sickle cell disease and follows at [facility]. He has known avascular necrosis in both of his hips and is currently awaiting hip replacement. He presented to the emergency room with a one-week history of a severe sore throat. He was found to have markedly leukocytosis and referred for admission.Throat culture is positive for Group C strep. He has been started on IV Rocephin and his throat pain is slowly improving. He also has been found to have a sickle cell crisis. He had an elevated reticulocyte count at the time of admission and he states that he is having pain primarily in his back and hips. Unfortunately we do not have access to IV morphine, Dilaudid or Demerol. IV fentanyl is the only narcotic that we have been he states this does not work for him. Yesterday this patient was started on p.o. Dilaudid with IV fentanyl for breakthrough pain. He has not tried the IV fentanyl as he is adamant that it does not work. His pain is still uncontrolled. Discussions have been had with the nursing staff in the emergency department and we are trying to get him a one-time dose of Dilaudid as there is a very small amount here in the hospital. At this point we have agreed to start him back on his home regimen of OxyContin 10 mg every 8 hours and after he receives the IV Dilaudid he will continue p.o. Dilaudid for breakthrough pain. I also have encouraged him to try the IV fentanyl. Overall he states his pain is somewhat better than when he came into the hospital but he is still nowhere close to baseline. He denies fever chills. No chest pain or evidence of acute chest syndrome. He feels like his heart is racing at times. He has had no nausea, vomiting or diarrhea. No dysuria, frequency or hematuria. He states his throat pain is improving. Reason For Visit: SSC, URI, CHRONIC PAIN Physical Exam Vital Signs: Temp Pulse Resp BP Pulse Ox 98.2 F 86 16 121/76 98 10/20/17 07:39 10/20/17 09:25 10/20/17 09:25 10/20/17 07:39 10/20/17 09:25 Intake & Output 10/19/17 10/20/17 10/21/17 06:59 06:59 06:59 Intake Total 120 3610 Output Total 300 3750 Balance -180 -140 Weight 62 kg 63.4 kg General appearance: PRESENT: well-developed, well-nourished, other - He appears to be uncomfortable but is not in acute distress Mouth exam: PRESENT: moist, tongue midline Respiratory exam: PRESENT: clear to auscultation helen. ABSENT: rales, rhonchi, wheezes Cardiovascular exam: PRESENT: +S1, +S2, tachycardia - Quite tachycardic this morning with a regular rhythm. ABSENT: diastolic murmur, rubs, systolic murmur GI/Abdominal exam: PRESENT: normal bowel sounds, soft. ABSENT: distended, guarding, mass, organolmegaly, rebound, tenderness Rectal exam: PRESENT: deferred Extremities exam: PRESENT: other - Tender to palpation over both hips and along femurs of both legs as well as tibias of both legs. Neurological exam: PRESENT: alert, awake, oriented to person, oriented to place , oriented to time, oriented to situation, CN II-XII grossly intact. ABSENT: motor sensory deficit Psychiatric exam: PRESENT: appropriate affect, normal mood. ABSENT: homicidal ideation, suicidal ideation Skin exam: PRESENT: dry, intact, warm. ABSENT: cyanosis, rash Results Laboratory Results: 10/20/17 06:00 10/20/17 06:00 10/20/17 10/20/17 06:00 06:00 WBC 13.5 H RBC 2.24 L Hgb 6.7 L Hct 20.6 L MCV 92 MCH 29.9 MCHC 32.6 RDW 21.8 H Plt Count 322 Seg Neutrophils % 64.7 Lymphocytes % 22.0 Monocytes % 11.5 Eosinophils % 1.2 Basophils % 0.6 Absolute Neutrophils 8.8 H Absolute Lymphocytes 3.0 Absolute Monocytes 1.6 H Absolute Eosinophils 0.2 Absolute Basophils 0.1 Retic Count (auto) 5.24 H Absolute Retic 0.117 Sodium 144.3 Potassium 3.1 L Chloride 118 H Carbon Dioxide 17 L Anion Gap 9 BUN 3 L Creatinine 0.46 L Est GFR ( Amer) > 60 Est GFR (Non-Af Amer) > 60 Glucose 70 L Calcium 6.6 L* Magnesium 1.5 L Impressions: Chest X-Ray 10/18/17 20:12 IMPRESSION: No acute infiltrates. Mild cardiomegaly. Characteristic bony findings of sickle cell Assessment & Plan - Diagnosis (1) Exudative pharyngitis Is this a current diagnosis for this admission?: Yes Plan: His throat culture is positive for group C strep. Continue IV Rocephin. This is the second full day of treatment. (2) Acute sickle cell crisis Is this a current diagnosis for this admission?: Yes Plan: Today I am going to cut his IV fluids bed 100 cc an hour. We are going to try to get him a one-time dose of IV Dilaudid. After this he will continue to have 4 mg of p.o. Dilaudid every 3 hours for pain. I am going to start him back on his home regimen of OxyContin 10 mg every 8 hours. He will continue to have IV fentanyl and he has been encouraged to try it. (3) Sickle cell anemia Is this a current diagnosis for this admission?: Yes Plan: Yesterday the patient has had a precipitous drop in his hemoglobin likely due to hemodilution as well as his sickle cell crisis. I am going to transfuse him 1 unit of packed red blood cells today as it has continued to drop down. He also has known avascular necrosis and significant pain in both of his hips and lower back at this time. Supportive care for now as outlined above. He does follow at [facility] and states that he is going to move back home to [place] as his is having a hard time managing all of this being away from family. (4) Hyponatremia Is this a current diagnosis for this admission?: Yes Plan: Resolved with IV fluid hydration. He will have a chemistry panel drawn in the morning (5) Elevated liver function tests Is this a current diagnosis for this admission?: Yes Plan: Secondary to iron overload and sickle cell crisis. (6) Full code status Is this a current diagnosis for this admission?: Yes - Time Time Spent with patient: 25-34 minutes - Inpatient Certification Medical Necessity: Need For IV Fluids, Need for IV Antibiotics, Other - Inpatient hospitalization remains necessary. The patient is having an active sickle cell crisis with poorly controlled pain. He needs further parenteral antibiotics. He needs blood today. I am going to continue IV fluid hydration. Hopefully if we can turn this around he can be discharged home in the next few days.
[2017-10-20] MEDS: LACTULOSE SYRUP 20 GM/30 ML UDCUP PO SCH (11:03)
[2017-10-20] MEDS: FLUTICASONE NASAL SPRAY 50 MCG/SPRY 120 SPRAY/16 GM NASL SCH ×2 (11:03→21:27)
[2017-10-20] MEDS ORDERED: OXYCODONE HCL SR 10 MG TABLET PO ONE (11:30)
[2017-10-20 11:56] LABS: HEMATOCRIT 22.4 % (37.9-51.0); MEAN CORPUSCULAR HEMOGLOBIN 29.8 pg (27.0-33.4); MEAN CORPUSCULAR HGB CONC 32.9 g/dL (32.0-36.0); MEAN CORPUSCULAR VOLUME 91 fl (80-97); PLATELET COUNT 338 10^3/uL (150-450); RED BLOOD COUNT 2.47 10^6/uL (4.35-5.55); RED CELL DISTRIBUTION WIDTH 22.1 % (11.5-14.0); WHITE BLOOD COUNT 13.6 10^3/uL (4.0-10.5)
[2017-10-20 11:58] LABS: HEMOGLOBIN 7.4 g/dL (13.5-17.0)
[2017-10-20] MEDS ORDERED: OXYCODONE HCL IR 5 MG TABLET PO SCH (14:00)
[2017-10-20] MEDS: OXYCODONE HCL SR 10 MG TABLET PO SCH (18:43)
[2017-10-20] MEDS: CEFTRIAXONE SODIUM 1,000 MG in NORMAL SALINE 100 ML IV SCH (21:27)
[2017-10-21] MEDS: HYDROMORPHONE HCL 2 MG TABLET PO PRN ×5 (00:54→21:23)
[2017-10-21] MEDS: NORMAL SALINE 1000 ML 1,000 ML IV PRN (00:56)
[2017-10-21] MEDS: IPRATROPIUM/ALBUTEROL 0.5-2.5 MG/3 ML AMPUL NEB SCH ×4 (01:09→21:18)
[2017-10-21] MEDS: OXYCODONE HCL SR 10 MG TABLET PO SCH ×3 (02:13→17:56)
[2017-10-21] MEDS: HEPARIN SOD (PORCINE) 5,000 UNIT/ML 1 ML SYRINGE SUBCUT SCH ×3 (03:25→23:38)
[2017-10-21 08:52] LABS: ABSOLUTE RETICS # 0.084 10^6/uL (0.028-0.122); HEMATOCRIT 25.4 % (37.9-51.0); HEMOGLOBIN 8.5 g/dL (13.5-17.0); MEAN CORPUSCULAR HEMOGLOBIN 29.9 pg (27.0-33.4); MEAN CORPUSCULAR HGB CONC 33.6 g/dL (32.0-36.0); MEAN CORPUSCULAR VOLUME 89 fl (80-97); PLATELET COUNT 371 10^3/uL (150-450); RED BLOOD COUNT 2.86 10^6/uL (4.35-5.55); RED CELL DISTRIBUTION WIDTH 20.8 % (11.5-14.0); RETICULOCYTE COUNT (AUTO) 2.95 % (0.66-2.85); WHITE BLOOD COUNT 10.9 10^3/uL (4.0-10.5)
[2017-10-21 09:12] LABS: ABSOLUTE LYMPHOCYTES# (MANUAL) 2.7 10^3/uL (0.5-4.7); ABSOLUTE MONOCYTES # (MANUAL) 1.3 10^3/uL (0.1-1.4); ABSOLUTE NEUTROPHILS# (MANUAL) 6.5 10^3/uL (1.7-8.2); ALANINE AMINOTRANSFERASE 65 U/L (21-72); ALBUMIN 3.5 g/dL (3.5-5.0); ALKALINE PHOSPHATASE 122 U/L (38-126); ANION GAP 10 (5-19); ASPARTATE AMINO TRANSFERASE 31 U/L (17-59); BASOPHILS % (MANUAL) 0 % (0-2); BILIRUBIN,DIRECT 0.4 mg/dL (0.0-0.4); BILIRUBIN,TOTAL 0.8 mg/dL (0.2-1.3); BLOOD UREA NITROGEN 5 mg/dL (7-20); CALCIUM 9.3 mg/dL (8.4-10.2); CARBON DIOXIDE 24 mmol/L (22-30); CHLORIDE 110 mmol/L (98-107); EOSINOPHILS % (MANUAL) 3 % (0-6); GLUCOSE 90 mg/dL (75-110); LYMPHOCYTES % (MANUAL) 25 % (13-45); MONOCYTES % (MANUAL) 12 % (3-13); POTASSIUM 3.8 mmol/L (3.6-5.0); SEGMENTED NEUTROPHILS % (MAN) 60 % (42-78); SODIUM 144.2 mmol/L (137-145); TOTAL CELLS COUNTED 100
[2017-10-21 09:14] LABS: ANISOCYTOSIS 2+; OVALOCYTES SLIGHT; PLATELET COMMENT ADEQUATE; POIKILOCYTOSIS SLIGHT; POLYCHROMASIA SLIGHT; SICKLE RED CELLS SLIGHT; TARGET CELLS SLIGHT; TOXIC GRANULATION SLIGHT
[2017-10-21] MEDS: LACTULOSE SYRUP 20 GM/30 ML UDCUP PO SCH (10:07)
[2017-10-21] MEDS: FLUTICASONE NASAL SPRAY 50 MCG/SPRY 120 SPRAY/16 GM NASL SCH ×2 (10:07→21:30)
--- NOTE | 2017-10-21 13:17 | PDOC PROGRESS REPORT ---
Subjective Progress Note for:: 10/21/17 Subjective:: The patient is a 32-year-old -Uz[place] male with a history of sickle cell disease who is usually followed by [facility] but moved to our area approximately week ago. He has known vascular necrosis to both hips and is currently awaiting a hip replacement. Is admitted on 10/18/17 with strep throat and sickle cell crisis. He is seen on morning rounds. He is found resting in bed comfortably on room air. He states that he continues to have inadequate pain control despite addition of OxyContin yesterday. He is appreciative of our efforts given the unavailability of IV Dilaudid and morphine. He states "I think I need 1 more day." He does request adjustments to his oral pain medications if that option is available. He denies dizziness, headaches, chest pains, palpitations, dyspnea, cough, abdominal pain. He has no other questions or concerns at this time. Reason For Visit: SSC, URI, CHRONIC PAIN Physical Exam Vital Signs: Temp Pulse Resp BP Pulse Ox 98.5 F 76 18 105/64 97 10/21/17 12:00 10/21/17 12:00 10/21/17 12:00 10/21/17 12:00 10/21/17 12:00 Intake & Output 10/20/17 10/21/17 10/22/17 06:59 06:59 06:59 Intake Total 3610 1110 Output Total 3750 500 Balance -140 1110 -500 Weight 63.4 kg General appearance: PRESENT: no acute distress, well-developed, well-nourished Head exam: PRESENT: atraumatic, normocephalic Eye exam: PRESENT: conjunctiva pink, EOMI, PERRLA. ABSENT: scleral icterus Ear exam: PRESENT: normal external ear exam Mouth exam: PRESENT: moist, tongue midline Neck exam: ABSENT: carotid bruit, JVD, lymphadenopathy, thyromegaly Respiratory exam: PRESENT: clear to auscultation helen. ABSENT: rales, rhonchi, wheezes Cardiovascular exam: PRESENT: RRR. ABSENT: diastolic murmur, rubs, systolic murmur Pulses: PRESENT: normal dorsalis pedis pul Vascular exam: PRESENT: normal capillary refill GI/Abdominal exam: PRESENT: normal bowel sounds, soft. ABSENT: distended, guarding, mass, organolmegaly, rebound, tenderness Rectal exam: PRESENT: deferred Extremities exam: PRESENT: full ROM. ABSENT: calf tenderness, clubbing, pedal edema Neurological exam: PRESENT: alert, awake, oriented to person, oriented to place , oriented to time, oriented to situation, CN II-XII grossly intact. ABSENT: motor sensory deficit Psychiatric exam: PRESENT: appropriate affect, normal mood. ABSENT: homicidal ideation, suicidal ideation Skin exam: PRESENT: dry, intact, warm. ABSENT: cyanosis, rash Results Laboratory Results: 10/21/17 08:30 10/21/17 08:30 10/20/17 10/21/17 10/21/17 11:03 08:30 08:30 WBC 10.9 H RBC 2.86 L Hgb 8.5 L Hct 25.4 L MCV 89 MCH 29.9 MCHC 33.6 RDW 20.8 H Plt Count 371 Seg Neutrophils % Not Reportable Lymphocytes % Not Reportable Monocytes % Not Reportable Eosinophils % Not Reportable Basophils % Not Reportable Absolute Neutrophils Not Reportable Absolute Lymphocytes Not Reportable Absolute Monocytes Not Reportable Absolute Eosinophils Not Reportable Absolute Basophils Not Reportable Retic Count (auto) 2.95 H Absolute Retic 0.084 Sodium 144.2 Potassium 3.8 Chloride 110 H Carbon Dioxide 24 Anion Gap 10 BUN 5 L Creatinine 0.64 Est GFR ( Amer) > 60 Est GFR (Non-Af Amer) > 60 Glucose 90 Calcium 9.3 Magnesium 1.7 Total Bilirubin 0.8 AST 31 ALT 65 Alkaline Phosphatase 122 Total Protein 7.0 Albumin 3.5 Blood Type O POSITIVE Antibody Screen NEGATIVE Impressions: Chest X-Ray 10/18/17 20:12 IMPRESSION: No acute infiltrates. Mild cardiomegaly. Characteristic bony findings of sickle cell Assessment & Plan - Diagnosis (1) Acute sickle cell crisis Is this a current diagnosis for this admission?: Yes Plan: The patient is admitted to the medical floor. Next line he continues on IV fluids at 100 mL's per hour. Continue OxyContin 10 mg every 8 hours scheduled. Will increase Dilaudid from 4 mg to 6 mg p.o. every 3 hours as needed for pain as he has been consistently taking medication continues to have severe breakthrough pain. IV fentanyl remains available to him, although he is reluctant to use this medication at this time. Overall, pain is improving and labs are reassuring. Anticipate discharge tomorrow. (2) Exudative pharyngitis Is this a current diagnosis for this admission?: Yes Plan: Throat culture positive for group C strep. He is currently on day 3 of IV Rocephin. The patient has been afebrile for greater than 48 hours; do not anticipate need for oral antibiotics at time of discharge. (3) Sickle cell anemia Is this a current diagnosis for this admission?: Yes Plan: The patient is now status post 1 unit packed red blood cell transfusion. Hemoglobin is up to 8.6 from 6.7 prior to transfusion. The patient is reassured by this and states that it is near baseline. We will continue to monitor and transfuse as necessary. Patient advises that he plans to follow-up with [facility] following discharge. (4) Elevated liver function tests Is this a current diagnosis for this admission?: Yes Plan: Resolved. Secondary to iron overload and sickle cell crisis. (5) Hyponatremia Is this a current diagnosis for this admission?: Yes Plan: Resolved. - Time Time Spent with patient: 15-24 minutes Medications reviewed and adjusted accordingly: Yes Anticipated discharge: Home Within: within 24 hours
[2017-10-21] MEDS: CEFTRIAXONE SODIUM 1,000 MG in NORMAL SALINE 100 ML IV SCH (22:20)
[2017-10-22] MEDS: OXYCODONE HCL SR 10 MG TABLET PO SCH ×2 (01:10→10:04)
[2017-10-22] MEDS: IPRATROPIUM/ALBUTEROL 0.5-2.5 MG/3 ML AMPUL NEB SCH ×2 (01:48→09:30)
[2017-10-22] MEDS: HYDROMORPHONE HCL 2 MG TABLET PO PRN ×3 (02:07→11:16)
[2017-10-22] MEDS: HEPARIN SOD (PORCINE) 5,000 UNIT/ML 1 ML SYRINGE SUBCUT SCH ×2 (05:26→14:16)
[2017-10-22 08:40] LABS: HEMATOCRIT 25.9 % (37.9-51.0); HEMOGLOBIN 8.5 g/dL (13.5-17.0); MEAN CORPUSCULAR HEMOGLOBIN 29.8 pg (27.0-33.4); MEAN CORPUSCULAR HGB CONC 32.9 g/dL (32.0-36.0); MEAN CORPUSCULAR VOLUME 91 fl (80-97); PLATELET COUNT 402 10^3/uL (150-450); RED BLOOD COUNT 2.86 10^6/uL (4.35-5.55); RED CELL DISTRIBUTION WIDTH 21.3 % (11.5-14.0); WHITE BLOOD COUNT 10.6 10^3/uL (4.0-10.5)
[2017-10-22 08:59] LABS: ANION GAP 11 (5-19); BLOOD UREA NITROGEN 6 mg/dL (7-20); CALCIUM 9.4 mg/dL (8.4-10.2); CARBON DIOXIDE 25 mmol/L (22-30); CHLORIDE 107 mmol/L (98-107); GLUCOSE 79 mg/dL (75-110); POTASSIUM 3.9 mmol/L (3.6-5.0); SODIUM 142.5 mmol/L (137-145)
[2017-10-22 09:09] LABS: ABSOLUTE LYMPHOCYTES# (MANUAL) 3.9 10^3/uL (0.5-4.7); ABSOLUTE MONOCYTES # (MANUAL) 1.7 10^3/uL (0.1-1.4); ABSOLUTE NEUTROPHILS# (MANUAL) 4.8 10^3/uL (1.7-8.2); BASOPHILS % (MANUAL) 2 % (0-2); EOSINOPHILS % (MANUAL) 0 % (0-6); LYMPHOCYTES % (MANUAL) 36 % (13-45); MONOCYTES % (MANUAL) 16 % (3-13); NUCLEATED RED BLOOD CELLS 1 /100 WBC (0); SEGMENTED NEUTROPHILS % (MAN) 45 % (42-78); TOTAL CELLS COUNTED 100
[2017-10-22 09:11] LABS: ANISOCYTOSIS 2+; HYPOCHROMASIA 1+; OVALOCYTES SLIGHT; POIKILOCYTOSIS 2+; SICKLE RED CELLS SLIGHT; TARGET CELLS SLIGHT
[2017-10-22 09:12] LABS: PLATELET COMMENT ADEQUATE; PLATELET GIANT PRESENT; POLYCHROMASIA SLIGHT
[2017-10-22] MEDS ORDERED: FOLIC ACID 1 MG TABLET PO SCH (10:00)
[2017-10-22] MEDS ORDERED: HYDROXYUREA 500 MG CAPSULE PO SCH (10:00)
[2017-10-22] MEDS: LACTULOSE SYRUP 20 GM/30 ML UDCUP PO SCH (10:08)
[2017-10-22] MEDS: FLUTICASONE NASAL SPRAY 50 MCG/SPRY 120 SPRAY/16 GM NASL SCH (10:08)
[2017-10-22] MEDS: NORMAL SALINE 1000 ML 1,000 ML IV PRN (10:15)
[2017-10-22 13:56] VITALS: BP 118/56
--- NOTE | 2017-10-23 12:10 | PDOC DISCHARGE SUMMARY ---
General - Admit/Disc Date/PCP Admission Date/Primary Care Provider: 10/19/17 00:43 Discharge Date: 10/23/17 - Discharge Diagnosis (1) Acute sickle cell crisis Is this a current diagnosis for this admission?: Yes (2) Exudative pharyngitis Is this a current diagnosis for this admission?: Yes (3) Sickle cell anemia Is this a current diagnosis for this admission?: Yes (4) Elevated liver function tests Is this a current diagnosis for this admission?: Yes (5) Hyponatremia Is this a current diagnosis for this admission?: Yes - Additional Information Resuscitation Status: Full Code Discharge Diet: Regular, Other (Comments) Discharge Activity: Activity As Tolerated, Balance Activity w/Rest, Slowly Increase Activity Prescriptions: Fluticasone Propionate [Flonase Nasal [place] 50 Mcg/[place] 16 gm] 2 spray NASL Q12 #1 spray.pump Oxycodone HCl 15 mg PO Q4HP PRN #18 tablet PRN Reason: Oxycodone HCl [Oxycontin] 10 mg PO Q8H PRN #9 tab.er.12h PRN Reason: Home Medications: Folic Acid 1 mg PO DAILY 10/19/17 Hydroxyurea [Hydrea 500 mg Capsule] 2,000 mg PO DAILY 10/19/17 Acetaminophen [Tylenol 325 mg Tablet] 650 mg PO Q6HP PRN tablet 10/22/17 Fluticasone Propionate [Flonase Nasal [place] 50 Mcg/[place] 16 gm] 2 spray NASL Q12 #1 spray.pump 10/22/17 Oxycodone HCl 15 mg PO Q4HP PRN #18 tablet 10/22/17 Oxycodone HCl [Oxycontin Sr 10 mg Tablet] 10 mg PO Q8A tab.sr.12h 10/22/17 Oxycodone HCl [Oxycontin] 10 mg PO Q8H PRN #9 tab.er.12h 10/22/17 History of Present Illness History of Present Illness: MASTER MATOS is a 32 year old male with a past medical history of sickle cell anemia and chronic pain. Patient has had 1 week of pharyngitis, denying rhinorrhea, cough, GERD, nausea vomiting he has had subjective fever prompting evaluation emergency room where he is found to have a severe leukocytosis of 29, 000, hemoglobin of 8.6 and reticulocyte count of 11. He started on empiric antibiotics of Rocephin, IV fluids and referred to the hospitalist for admission. Patient denies recent antibiotic use and is otherwise been feeling well. He denies chest pain shortness of breath nausea vomiting. Hospital Course Hospital Course: The patient was admitted for sickle cell crisis and acute pharyngitis. Cultures grew group C beta strep. He was placed on IV Rocephin and received a day course of therapy with resolution of his pharyngitis. He was provided aggressive IV fluid resuscitation. Pain was managed with IV fentanyl, OxyContin , and p.o. Dilaudid. The patient did require 1 unit of packed red blood cells for a hemoglobin of 6.7. Following transfusion, his hemoglobin stabilized at 8.6 which the patient tells me is close to his baseline. The patient is followed by [facility]; patient states that he will follow-up with them after discharge. At time of discharge, the patient is stable condition, his pain is well- controlled with scheduled OxyContin 10 mg every 8 hours and as needed p.o. Dilaudid. The patient requests that his prescription be written for an equivalent dose of oxycodone due to affordability. He is provided prescriptions for the OxyContin #9 as well as oxycodone 15 mg every 4 hours as needed #18. He is encouraged to drink plenty of water and to follow-up with his primary care provider within 1 week and with [facility] as scheduled. Physical Exam Vital Signs: Temp Pulse Resp BP Pulse Ox 98.3 F 70 16 118/56 L 96 10/22/17 13:37 10/22/17 13:37 10/22/17 13:37 10/22/17 13:37 10/22/17 13:37 Intake & Output 10/22/17 10/23/17 10/24/17 06:59 06:59 06:59 Intake Total 600 1380 Output Total 1000 1200 Balance -400 180 Weight 63.7 kg General appearance: PRESENT: no acute distress, well-developed, well-nourished Head exam: PRESENT: atraumatic, normocephalic Eye exam: PRESENT: conjunctiva pink, EOMI, PERRLA. ABSENT: scleral icterus Ear exam: PRESENT: normal external ear exam Mouth exam: PRESENT: moist, tongue midline Neck exam: ABSENT: carotid bruit, JVD, lymphadenopathy, thyromegaly Respiratory exam: PRESENT: clear to auscultation helen, symmetrical, unlabored. ABSENT: rales, rhonchi, wheezes Cardiovascular exam: PRESENT: RRR, +S1, +S2. ABSENT: diastolic murmur, rubs, systolic murmur Pulses: PRESENT: normal dorsalis pedis pul Vascular exam: PRESENT: normal capillary refill GI/Abdominal exam: PRESENT: normal bowel sounds, soft. ABSENT: distended, guarding, mass, organolmegaly, rebound, tenderness Rectal exam: PRESENT: deferred Extremities exam: PRESENT: full ROM. ABSENT: calf tenderness, clubbing, pedal edema Neurological exam: PRESENT: alert, awake, oriented to person, oriented to place , oriented to time, oriented to situation, CN II-XII grossly intact. ABSENT: motor sensory deficit Psychiatric exam: PRESENT: appropriate affect, normal mood. ABSENT: homicidal ideation, suicidal ideation Skin exam: PRESENT: dry, intact, warm. ABSENT: cyanosis, rash Results Laboratory Results: 10/22/17 07:50 10/22/17 07:50 Impressions: Chest X-Ray 10/18/17 20:12 IMPRESSION: No acute infiltrates. Mild cardiomegaly. Characteristic bony findings of sickle cell Qualifiers - * PATEINT BEING DISCHARGED WITH ANY OF THE FOLLOWING DIAGNOSIS?: No
== END 2017-10-22 15:00 | disposition home or self-care (01) | DRG 812 ==
LOC: ER 19:08 → EH 10-19 00:43 → 2N 10-19 03:13
PROVIDERS: ADMIT Internal Medicine; ATTEND Internal Medicine
PROC: 30283B1 Transfusion of Nonautologous 4-Factor Prothrombin Complex Concentrate into Vein, Percutaneous Approach (ICD-10-PCS; principal; 2017-10-20)
DX: D57.00 Hb-SS disease with crisis, unspecified (principal); M87.852 Other osteonecrosis, left femur; M87.851 Other osteonecrosis, right femur; E87.1 Hypo-osmolality and hyponatremia; G89.29 Other chronic pain; J02.9 Acute pharyngitis, unspecified; K21.9 Gastro-esophageal reflux disease without esophagitis; J02.0 Streptococcal pharyngitis; R79.89 Other specified abnormal findings of blood chemistry; Z95.9 Presence of cardiac and vascular implant and graft, unspecified; Z82.49 Family history of ischemic heart disease and other diseases of the circulatory system; Z79.891 Long term (current) use of opiate analgesic
CPT/HCPCS: 36415; 36430; 36591; 71046; 80048; 80053; 80076; 83735; 85025; 85027; 85045; 86850; 86900; 86901; 86902; 86920; 87040; 87070; 87077; 87880; 94640; 96361; 96374; 96375; 99284; J0696; J1170; J1642; J1885; J2405; J7030; J7620; P9016

== ENCOUNTER 2017-11-02 15:12 | Emergency (ER) | payer MEDICAID ==
[2017-11-02] MEDS ORDERED: NORMAL SALINE 1000 ML 1,000 ML IV ONE (16:15)
[2017-11-02] MEDS ORDERED: ONDANSETRON HCL INJ/PF 4 MG/2 ML SDV IV ONE (16:15)
[2017-11-02] MEDS ORDERED: HYDROMORPHONE HCL INJ/PF 2 MG/ML AMPULE IV ONE ×2 (16:16→18:57)
--- NOTE | 2017-11-02 16:16 | ER Document Report ---
ED Medical Screen (RME) - General Chief Complaint: Pain All Over Stated Complaint: SICKLE CELL/PAIN ALL OVER Time Seen by Provider: 11/02/17 16:14 Notes: Patient has a history of sickle cell anemia. States he was just transfused her 3 weeks ago. He states he has cough cold and congestion is been having generalized body aches since yesterday. TRAVEL OUTSIDE OF THE [place] IN LAST 30 DAYS: No - Related Data Allergies/Adverse Reactions: No Known Allergies Allergy (Verified 10/18/17 19:10) Past Medical History - Social History Chew tobacco use (# tins/day): No Frequency of alcohol use: None Drug Abuse: None Renal/ Medical History: Denies: Hx Peritoneal Dialysis Past Surgical History: Reports: Other - Left anterior chest wall port - Immunizations Immunizations up to date: Yes Hx Diphtheria, Pertussis, Tetanus Vaccination: Yes History of Influenza Vaccine for 05/2017 - 10/2017 Season: Yes Influenza Administration Date for 05/2017 - 10/2017 Season: 10/19/17 Physical Exam - Vital signs Vitals: Temp Pulse Resp BP Pulse Ox 98.6 F 80 16 111/63 99 11/02/17 15:22 11/02/17 15:22 11/02/17 15:22 11/02/17 15:22 11/02/17 15:22 Course - Vital Signs Vital signs: Temp Pulse Resp BP Pulse Ox 98.6 F 80 16 111/63 99 11/02/17 15:22 11/02/17 15:22 11/02/17 15:22 11/02/17 15:22 11/02/17 15:22
[2017-11-02] MEDS ORDERED: MORPHINE SULFATE 10 MG/ML INJ IV ONE ×3 (17:04→20:53)
[2017-11-02 17:31] LABS: HEMATOCRIT 30.7 % (37.9-51.0); HEMOGLOBIN 10.1 g/dL (13.5-17.0); MEAN CORPUSCULAR HEMOGLOBIN 29.1 pg (27.0-33.4); MEAN CORPUSCULAR HGB CONC 32.7 g/dL (32.0-36.0); MEAN CORPUSCULAR VOLUME 89 fl (80-97); PLATELET COUNT 516 10^3/uL (150-450); RED BLOOD COUNT 3.45 10^6/uL (4.35-5.55); RED CELL DISTRIBUTION WIDTH 20.3 % (11.5-14.0); WHITE BLOOD COUNT 14.3 10^3/uL (4.0-10.5)
[2017-11-02 17:33] LABS: APPEARANCE,URINE CLEAR; BILIRUBIN,URINE NEGATIVE (NEGATIVE); COLOR,URINE YELLOW; GLUCOSE, URINE NEGATIVE (NEGATIVE); KETONES,URINE NEGATIVE (NEGATIVE); LEUKOCYTE ESTERASE,URINE NEGATIVE (NEGATIVE); NITRITE,URINE NEGATIVE (NEGATIVE); PROTEIN,URINE 100 mg/dL (NEGATIVE); URINE SPECIFIC GRAVITY 1.011; UROBILINOGEN,URINE NEGATIVE mg/dL (<2.0)
--- NOTE | 2017-11-02 17:35 | RADIOLOGY REPORT (SQ) ---
EXAM DESCRIPTION: CHEST PA/LAT COMPLETED DATE/TIME: 11/02/2017 5:20 pm REASON FOR STUDY: cp COMPARISON: 10/18/2017 EXAM PARAMETERS: NUMBER OF VIEWS: two views TECHNIQUE: Digital Frontal and Lateral radiographic views of the chest acquired. RADIATION DOSE: NA LIMITATIONS: none FINDINGS: LUNGS AND PLEURA: No opacities, masses or pneumothorax. No pleural effusion. MEDIASTINUM AND HILAR STRUCTURES: No masses or contour abnormalities. HEART AND VASCULAR STRUCTURES: Heart normal size. No evidence for failure. BONES: There are osseous findings are characteristic of sickle cell disease. These are stable. HARDWARE: None in the chest. OTHER: No other significant finding. IMPRESSION: No acute cardiopulmonary disease. TECHNICAL DOCUMENTATION: JOB ID: [id number] [employer]- All Rights Reserved Reading location - IP/workstation name: [email or web address]
[2017-11-02 17:51] LABS: ALANINE AMINOTRANSFERASE 43 U/L (21-72); ALBUMIN 4.7 g/dL (3.5-5.0); ALKALINE PHOSPHATASE 153 U/L (38-126); ANION GAP 11 (5-19); ASPARTATE AMINO TRANSFERASE 31 U/L (17-59); BILIRUBIN,DIRECT 0.3 mg/dL (0.0-0.4); BILIRUBIN,TOTAL 1.2 mg/dL (0.2-1.3); BLOOD UREA NITROGEN 6 mg/dL (7-20); CALCIUM 10.1 mg/dL (8.4-10.2); CARBON DIOXIDE 29 mmol/L (22-30); CHLORIDE 103 mmol/L (98-107); GLUCOSE 96 mg/dL (75-110); POTASSIUM 3.9 mmol/L (3.6-5.0); SODIUM 143.4 mmol/L (137-145); TOTAL PROTEIN 8.4 g/dL (6.3-8.2)
[2017-11-02 17:59] LABS: ABSOLUTE LYMPHOCYTES# (MANUAL) 3.1 10^3/uL (0.5-4.7); ABSOLUTE NEUTROPHILS# (MANUAL) 10.2 10^3/uL (1.7-8.2); ANISOCYTOSIS 2+; BASOPHILS % (MANUAL) 0 % (0-2); EOSINOPHILS % (MANUAL) 0 % (0-6); HOWELL-JOLLY BODIES PRESENT; HYPOCHROMASIA 1+; LYMPHOCYTES % (MANUAL) 22 % (13-45); MONOCYTES % (MANUAL) 7 % (3-13); PLATELET COMMENT INCREASED; POIKILOCYTOSIS 2+; POLYCHROMASIA 2+; SEGMENTED NEUTROPHILS % (MAN) 71 % (42-78); TARGET CELLS SLIGHT; TOTAL CELLS COUNTED 100; TOXIC GRANULATION SLIGHT; TOXIC VACUOLATION PRESENT
[2017-11-02 18:00] LABS: OVALOCYTES 1+; SCHISTOCYTES SLIGHT; SICKLE RED CELLS 1+
--- NOTE | 2017-11-02 18:52 | ER Document Report ---
ED General <ROCHELLEYANELI Degroot - Last Filed: 11/02/17 21:14> - General Mode of Arrival: Ambulatory Information source: Patient TRAVEL OUTSIDE OF THE [place] IN LAST 30 DAYS: No <ROBBI LEHMAN - Last Filed: 11/02/17 21:19> - General Chief Complaint: Pain All Over Stated Complaint: SICKLE CELL/PAIN ALL OVER Time Seen by Provider: 11/02/17 16:14 Notes: Patient is a 32-year-old male with a history of sickle cell anemia presents to the emergency department complaining of generalized body aches onset last night. Patient states that his generalized pain feels like his typical sickle cell flare ups. Patient also complains of cough and sinus congestion. 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 (ROBBI LEHMAN) - Related Data Allergies/Adverse Reactions: No Known Allergies Allergy (Verified 10/18/17 19:10) Past Medical History - General Information source: Patient - Social History Smoking Status: Never Smoker Chew tobacco use (# tins/day): No Frequency of alcohol use: None Drug Abuse: None Family History: Reviewed & Not Pertinent Patient has suicidal ideation: No Patient has homicidal ideation: No Past Surgical History: Reports: Other - Left anterior chest wall port - Immunizations Immunizations up to date: Yes Hx Diphtheria, Pertussis, Tetanus Vaccination: Yes <ROBBI LEHMAN - Last Filed: 11/02/17 21:19> Review of Systems - Review of Systems Constitutional: No symptoms reported EENT: See HPI Cardiovascular: No symptoms reported Respiratory: No symptoms reported Gastrointestinal: No symptoms reported Genitourinary: No symptoms reported Male Genitourinary: No symptoms reported Musculoskeletal: See HPI Skin: No symptoms reported Hematologic/Lymphatic: No symptoms reported Neurological/Psychological: No symptoms reported -: Yes All other systems reviewed and negative <ROBBI LEHMAN - Last Filed: 11/02/17 21:19> Physical Exam <YANELI BYRD Zane - Last Filed: 11/02/17 21:14> <ROBBI LEHMAN - Last Filed: 11/02/17 21:19> - Vital signs Vitals: Temp Pulse Resp BP Pulse Ox 98.6 F 80 16 111/63 99 03/28/18 15:22 11/02/17 15:22 11/02/17 15:22 11/02/17 15:22 11/02/17 15:22 - Notes Notes: GENERAL: Alert, interacts well. No acute distress. HEAD: Normocephalic, atraumatic. EYES: Pupils equal, round, and reactive to light. Extraocular movements intact. ENT: Oral mucosa moist, tongue midline. NECK: Full range of motion. Supple. Trachea midline. LUNGS: Clear to auscultation bilaterally, no wheezes, rales, or rhonchi. No respiratory distress. HEART: Regular rate and rhythm. No murmurs, gallops, or rubs. ABDOMEN: Soft, non-tender. Non-distended. Bowel sounds present in all 4 quadrants. EXTREMITIES: Moves all 4 extremities spontaneously. NEUROLOGICAL: Alert and oriented x3. Normal speech. PSYCH: Normal affect, normal mood. SKIN: Warm, dry, normal turgor. No rashes or lesions noted. (ROBBI LEHMAN) Course - Laboratory Result Diagrams: 11/02/17 16:35 11/02/17 16:35 <YANELI BYRD - Last Filed: 11/02/17 21:14> - Laboratory Result Diagrams: 11/02/17 16:35 11/02/17 16:35 <ROBBI LEHMAN - Last Filed: 11/02/17 21:19> - Re-evaluation Re-evalutation: 11/02/17 21:14 Patient well-appearing in no acute distress states that his pain is subsided with IV medications. He states that he is having his narcotic refill on Tuesday of this week. I will provide a small take-home pack of narcotics to help bridge him until that time. Patient's labs within normal limits are nonsignificant with no concerning findings on chest radiograph. He did have mild leukocytosis but very nonspecific as he is not a recent fevers or illnesses no signs of infection. He also states that his pain is typical of his previous pain spells. 11/02/17 21:15 (YANELI BYRD) - Vital Signs Vital signs: Temp Pulse Resp BP Pulse Ox 98.6 F 80 16 111/63 99 11/02/17 15:22 11/02/17 15:22 11/02/17 15:22 11/02/17 15:22 11/02/17 15:22 - Laboratory Laboratory results interpreted by me: 11/02/17 11/02/17 11/02/17 16:35 16:35 16:35 WBC 14.3 H RBC 3.45 L Hgb 10.1 L Hct 30.7 L RDW 20.3 H Plt Count 516 H Abs Neuts (Manual) 10.2 H Retic Count (auto) 5.20 H Absolute Retic 0.180 H BUN 6 L Alkaline Phosphatase 153 H Total Protein 8.4 H Urine Protein 100 H Discharge <YANELI BYRD - Last Filed: 11/02/17 21:14> <ROBBI LEHMAN - Last Filed: 11/02/17 21:19> - Discharge Clinical Impression: Sickle cell anemia with pain Condition: Good Disposition: HOME, SELF-CARE Instructions: Sickle Cell Crisis ([facility]) Additional Instructions: Please follow-up with your neurology epilepsy physician with your next scheduled appointment. In theEvent that your pain recurs or worsens and you start to develop any fevers or illnesses please return sooner to the emergency department for reevaluation. Scribe Documentation - Scribe Written by Patrizia:: Patrizia Huggins, 11/02/2017 18:53 acting as scribe for :: Rochelle <ROBBI LEHMAN - Last Filed: 11/02/17 21:19>
[2017-11-02] MEDS ORDERED: HYDROCODONE/ACETAMINOPHEN 5-325 MG (6 TAB/ER DISP) PO PRN (21:17)
[2017-11-02 21:58] VITALS: BP 123/66
== END 2017-11-02 21:57 | disposition home or self-care (01) ==
LOC: ER 15:12
DX: D57.219 Sickle-cell/Hb-C disease with crisis, unspecified (principal); M79.1 Myalgia; R05 Cough; R09.81 Nasal congestion; Z79.899 Other long term (current) drug therapy
CPT/HCPCS: 36591; 96376; 99284; 96361; 96374; 96375; 36415; 85025; 85045; 80053; 81001; 71046; J2270; J2405; J7030